=== PATIENT | male | born 1980 | race Caucasian/White ===

== ENCOUNTER → 2017-05-09 | Outpatient (CLI) | payer BC ==
[~2017-05-09] VITALS: Ht 185.4 cm; Wt 75.0 kg
[~2017-05-09] MED LIST: AZELASTINE137 MCG/0. BOTH NARES; VITAMIN D31000 UNIT PO
== END | disposition home or self-care (01) ==
LOC: AMB 04-22 07:30 → OPR 04-22 09:00 → AMB 13:18
DX: K20.0 Eosinophilic esophagitis (principal); K22.10 Ulcer of esophagus without bleeding; K22.2 Esophageal obstruction; Z80.0 Family history of malignant neoplasm of digestive organs; L03.115 Cellulitis of right lower limb; F17.200 Nicotine dependence, unspecified, uncomplicated; J30.1 Allergic rhinitis due to pollen; Z91.018 Allergy to other foods
CPT/HCPCS: 88305; 88342 TC